=== PATIENT | female | born 1945 | race Caucasian/White ===

== ENCOUNTER 2020-10-30 08:50 | Outpatient (REF) | payer MEDICARE, SELFPAY | END 2020-10-30 08:51 | disposition home or self-care (01) | LOC: HO.SCI 08:50 | DX: Z13.89 Encounter for screening for other disorder (principal) ==

== ENCOUNTER 2020-11-16 15:22 | Outpatient (REF) | payer MEDICARE, SELFPAY ==
--- NOTE | 2020-11-16 | PFT_ITS ---
INDICATION: Dyspnea. SPIROMETRY: The FEV1 to FVC of 75% with an FEV1 of 1.52 L, which is 94% predicted, FVC of 2.03 L, which is 92% predicted. No significant response to bronchodilators noted. Maximum voluntary ventilation 70% predicted. LUNG VOLUMES: Total lung capacity 105% predicted with an expiratory reserve volume of 37% predicted. DIFFUSION CAPACITY: DLCO 83% predicted. COMPARISONS: None. INTERPRETATION: No obstructive nor restrictive ventilatory defects identified. No significant response to bronchodilators noted. There is a mild decrease in maximum voluntary ventilation secondary to likely deconditioning. Lung volumes are within normal limits except for decrease in the expiratory reserve volume. Diffusion capacity is low normal. No clear explanation for the patient's dyspnea based on this PFT. Consider methacholine challenge if diagnosis of asthma is in the differential. Otherwise, clinical correlation warranted. MD LACY Hernandez/MODL / [id number]
== END 2020-11-16 15:23 | disposition home or self-care (01) ==
LOC: HO.RESP 15:22
PROVIDERS: PCP Internal Medicine; Visit Provider Internal Medicine
DX: R06.00 Dyspnea, unspecified (principal)
CPT/HCPCS: 94060; 94727; 94729

== ENCOUNTER → 2020-11-27 13:24 | Outpatient (BNVA) | payer MEDICARE, SELFPAY | PROVIDERS: PCP Internal Medicine; Visit Provider Internal Medicine | DX: R06.00 Dyspnea, unspecified (principal) | CPT/HCPCS: 99202 ==